=== PATIENT | female | born 1950 | race Caucasian/White ===

== ENCOUNTER 2019-03-19 11:51 | Emergency (ER) | payer OTHER ==
[2019-03-19] MEDS ORDERED: NA CHLORIDE 0.9% 0 ML ONE (12:21)
[2019-03-19] MEDS ORDERED: ASPIRIN 81 MG CHEWABLE TABLET ONE (12:21)
[2019-03-19] MEDS ORDERED: NITROGLYCERIN 0.4 MG/TAB SL ONE (12:21)
[2019-03-19 12:25] LABS: Absolute Lymphocytes (CBC) 1.2 K/uL (0.7-4.9); Basophils % 0.5 % (0-1.3); Hematocrit 41.4 % (36.0-45.0); Lymphocytes % 28.1 % (15.3-44.8); MPV 7.8 fL (7.6-11.3); RBC Red Blood Cell Count 4.78 M/uL (3.86-4.86)
[2019-03-19 12:26] LABS: Protime INR 0.95
[2019-03-19 12:41] LABS: ALT/SGPT 17 U/L (12-78); AST/SGOT 17 U/L (15-37); Albumin 3.8 g/dL (3.4-5.0); Alkaline Phosphatase 93 U/L (45-117); BUN Blood Urea Nitrogen 16 mg/dL (7-18); Bicarbonate 26 mmol/L (21-32); Bilirubin Direct 0.1 mg/dL (0-0.2); Bilirubin Total 0.4 mg/dL (0.2-1.0); Glucose Level 94 mg/dL (74-106); Magnesium 2.3 mg/dL (1.8-2.4); NT PRO-BNP 791 pg/mL (<125); Potassium 3.6 mmol/L (3.5-5.1); Protein, Total 7.6 g/dL (6.4-8.2); Sodium Level 146 mmol/L (136-145); Troponin (Emerg Dept Use Only) < 0.02 ng/mL (0.0-0.045)
[2019-03-19] MEDS ORDERED: LORazepam 2 MG/ML VIAL ONE (13:34)
--- NOTE | 2019-03-19 14:10 | RAD REPORT ---
EXAM DESCRIPTION: CT - Chest Angio - 03/19/2019 1:55 pm CLINICAL HISTORY: back pain;Chest pain COMPARISON: Chest films same day TECHNIQUE: Dynamically enhanced 3 mm thick images of the chest were obtained during administration o f approximately 150mL Isovue 370 IV contrast. Coronal and oblique MIP reconstruction images were gene rated and reviewed. Exam utilizes a protocol to evaluate the pulmonary arterial tree. All CT scans are performed using dose optimization technique as appropriate and may include automated exposure control or mA/KV adjustment according to patient size. FINDINGS: No pulmonary emboli are identified. Thoracic aorta is well visualized. No acute aortic finding. No pericardial thickening or effusion. No infiltrate or mass in the lung parenchyma. No pleural effusion or pleural thickening. No mediastinal or hilar suspicious masses. No chest wall masses or abnormal axillary lymphadenopathy. Limited upper abdomen imaging shows small hiatal hernia. IMPRESSION: No pulmonary emboli. No acute aortic finding. Lungs are clear. No acute CT chest finding seen.
--- NOTE | 2019-03-19 15:07 | RAD REPORT ---
EXAM DESCRIPTION: Aj Single View03/19/2019 12:28 pm CLINICAL HISTORY: Chest pain COMPARISON: 2017 FINDINGS: The lungs appear clear of acute infiltrate. The heart is normal size IMPRESSION: No acute abnormalities displayed
--- NOTE | 2019-03-19 15:07 | EDPHYS ---
Physician Documentation [facility] Name: Carisa Lubin Age: 69 yrs Sex: Female : 1950 Arrival Date: 03/19/2019 Time: 11:52 Bed 23 Private MD: Ashkan King ED Physician Colton Ennis HPI: 03/19 12:23 This 69 yrs old Female presents to ER via Ambulatory with complaints of Chest cp Pain. 12:23 The patient or guardian reports chest pain that is located primarily in the substernal cp area. 12:23 Onset: 3 day(s) ago. Associated signs and symptoms: Pertinent negatives: abdominal cp pain, cough, diaphoresis, dizziness, lower extremity pain, lower extremity swelling, shortness of breath, syncope. 12:23 The chest pain is described as aching. Duration: The patient or guardian reports cp multiple episodes, that wax and wane. Modifying factors: The symptoms are alleviated by NSAIDS, Ibuprofen. the symptoms are aggravated by nothing. 12:23 Associated signs and symptoms: Pertinent positives: pain upper back and neck area. cp Patient reports chest pain for past few days that usually is relieved after taking ibuprofen. Today pain has persisted so PCP wanted her to come to ED for evaluation. Patient reports she is active and pain does not seem to worsen with activity. Historical: - Allergies: 11:57 Codeine; aj1 - Home Meds: 11:57 irbesartan oral oral [Active]; unknown blood pressure medication [Active]; aj1 - PMHx: 11:57 Hypertension; Migraines; aj1 - Immunization history:: Flu vaccine is not up to date. - Social history:: Smoking status: Patient/guardian denies using tobacco. - Ebola Screening: : Patient denies travel to an Ebola-affected area in the 21 days before illness onset. ROS: 12:25 Constitutional: Negative for body aches, chills, fever, poor PO intake. cp 12:25 Eyes: Negative for injury, pain, redness, and discharge. cp 12:25 ENT: Negative for drainage from ear(s), ear pain, sore throat, difficulty swallowing, difficulty handling secretions. 12:25 Cardiovascular: Positive for chest pain, Negative for edema, palpitations. 12:25 Respiratory: Negative for cough, shortness of breath, wheezing. 12:25 Abdomen/GI: Negative for abdominal pain, nausea, vomiting, and diarrhea. 12:25 Back: Positive for pain at rest, of the upper back, Negative for injury or acute deformity. 12:25 : Negative for urinary symptoms. 12:25 Skin: Negative for cellulitis, rash. 12:25 Neuro: Negative for altered mental status, dizziness, syncope, weakness. 12:25 All other systems are negative. Exam: 12:05 ECG was reviewed by the Attending Physician. cp 12:33 Constitutional: The patient appears in no acute distress, alert, awake, comfortable, cp non-diaphoretic, non-toxic, well developed, well nourished. 12:33 Head/Face: Normocephalic, atraumatic. cp 12:33 Eyes: Periorbital structures: appear normal, Pupils: equal, round, and reactive to light and accomodation, Extraocular movements: intact throughout, Conjunctiva: normal, no exudate, no injection, Sclera: no appreciated abnormality, Lids and lashes: appear normal, bilaterally. 12:33 ENT: External ear(s): are unremarkable, Nose: is normal, Mouth: is normal, Posterior pharynx: is normal, airway is patent, no erythema, no exudate. 12:33 Neck: ROM/movement: is normal, is supple, without pain, no range of motions limitations, no nuchal rigidity. 12:33 Chest/axilla: Inspection: normal, Palpation: is normal, no crepitus, no tenderness. 12:33 Cardiovascular: Rate: normal, Rhythm: regular, Pulses: Pulses are 2+ in right radial artery and left radial artery. Edema: is not appreciated, JVD: is not appreciated. 12:33 Respiratory: the patient does not display signs of respiratory distress, Respirations: normal, no use of accessory muscles, no retractions, no splinting, no tachypnea, labored breathing, is not present, Breath sounds: are clear throughout, no decreased breath sounds, no stridor, no wheezing. 12:33 Abdomen/GI: Inspection: abdomen appears normal, Palpation: abdomen is soft and non-tender, in all quadrants. 12:33 Back: pain, that is mild, of the upper back, ROM is normal. 12:33 Skin: no rash present. 12:33 Neuro: Orientation: to person, place \T\ time. Mentation: is normal, Motor: moves all fours, strength is normal, Sensation: is normal. 14:53 ECG was reviewed by the Attending Physician. cp Vital Signs: 11:57 BP 199 / 89; Pulse 63; Resp 18; Temp 98.7; Pulse Ox 100% on R/A; Weight 76.2 kg (R); aj1 Height 5 ft. 7 in. (170.18 cm) (R); Pain 4/10; 12:17 BP 156 / 84; Pulse 60; Resp 18; Pulse Ox 99% on R/A; mg2 13:40 BP 151 / 68; Pulse 60; Resp 18; Pulse Ox 100% on R/A; mg2 15:01 BP 172 / 66; Pulse 53; Resp 19; Temp 98.7(O); Pulse Ox 100% ; lt1 11:57 Body Mass Index 26.31 (76.20 kg, 170.18 cm) aj1 MDM: 12:10 Patient medically screened. cp 12:35 Differential diagnosis: acute myocardial infarction, acute pericarditis, chest wall cp pain, pericarditis, pleurisy, pneumonia, pneumothorax, pulmonary embolus, stable angina, thoracic aortic disection, unstable angina. 13:56 HEART Score: History: Slightly Suspicious (0), ECG: Normal (0), Age: > or = 65 years cp (2), Risk Factors: 1 or 2 risk factors (1), [Hypertension] Troponin: < or = 1 x Normal Limit (0). The patient was given aspirin in the Emergency Department. 15:05 Data reviewed: vital signs, nurses notes, lab test result(s), EKG, radiologic studies, cp CT scan, plain films. 15:05 Test interpretation: by ED physician or midlevel provider: ECG, plain radiologic cp studies. Counseling: I had a detailed discussion with the patient and/or guardian regarding: the historical points, exam findings, and any diagnostic results supporting the discharge/admit diagnosis, lab results, radiology results, the need for outpatient follow up, a spoon maker, to return to the emergency department if symptoms worsen or persist or if there are any questions or concerns that arise at home. ED course: VSS. Initial and repeat EKGs and troponin negative. Patient reports she has appt with cardiology next week. Will discharge to home for continued monitoring. 03/19 12:03 Order name: Basic Metabolic Panel; Complete Time: 13:21 mg2 03/19 13:21 Interpretation: Normal except: NA 146; CL 112; GFR 46. 03/19 12:03 Order name: CBC with Diff; Complete Time: 13:21 mg2 03/19 13:55 Interpretation: Normal except: EOSINOPHIL % 14.6; EOSA 0.6. 03/19 12:03 Order name: LFT's; Complete Time: 13:21 [facility] [place] 03/[place] 12:03 Order name: Magnesium; Complete Time: 13:21 mg2 03/19 12:03 Order name: NT PRO-BNP; Complete Time: 13:21 mg2 03/19 12:03 Order name: PT-INR; Complete Time: 13:21 [facility] [place] 03/19 12:03 Order name: Troponin (emerg Dept Use Only); Complete Time: 13:21 mg2 03/19 12:03 Order name: XRAY Chest (1 view) [facility] [place] 03/19 12:26 Order name: CT Chest Angio 03/19 14:22 Order name: Troponin (emerg Dept Use Only): repeat; Complete Time: 15:05 [facility] [place] 03/19 15:05 Interpretation: Reviewed. 03/19 14:35 Order name: CT; Complete Time: 14:58 EDMS 03/19 12:03 Order name: EKG; Complete Time: 12:05 [facility] [place] 03/19 12:03 Order name: Cardiac monitoring; Complete Time: 12: [facility] [place] 03/19 12:03 Order name: EKG - Nurse/Tech; Complete Time: 12:03 [facility] [place] 03/19 12:03 Order name: IV Saline Lock; Complete Time: 12: [facility] [place] 03/19 12:03 Order name: Labs collected and sent; Complete Time: 12:15 [facility] [place] 03/19 12:03 Order name: O2 Per Protocol; Complete Time: 12:15 [facility] [place] 03/19 12:03 Order name: O2 Sat Monitoring; Complete Time: 12:15 [facility] [place] 03/19 14:22 Order name: EKG - Nurse/Tech: repeat; Complete Time: 14:52 mg2 EC:05 Rate is 68 beats/min. Rhythm is regular. WI interval is normal. QRS interval is normal. cp QT interval is normal. Interpreted by me. Reviewed by me. 14:53 Rate is 51 beats/min. Rhythm is regular. WI interval is normal. QRS interval is normal. cp QT interval is normal. Interpreted by me. Reviewed by me. Administered Medications: 12:29 Not Given (Patient Refused; patient is pain-free): Nitroglycerin 0.4 mg Sublingual once mg2 12:29 Not Given (Patient Refused): NS 0.9% 500 ml IV at bolus once mg2 12:30 Drug: Aspirin Chewable Tablet 243 mg {Note: patient took 81 mg aspirin at home, just mg2 given 3 81 mg in ed.} Route: PO; 13:36 Follow up: Response: No adverse reaction mg2 14:03 Not Given (Patient Refused): Ativan 0.5 mg IVP once mg2 Disposition: 15:43 Co-signature as Attending Physician, Colton Ennis MD I agree with the assessment and kdr plan of care. Disposition: 03/19/19 15:05 Discharged to Home. Impression: Chest pain, unspecified. - Condition is Stable. - Discharge Instructions: Nonspecific Chest Pain, Aspirin and Your Heart. - Prescriptions for Ibuprofen 800 mg Oral Tablet - take 1 tablet by ORAL route every 8 hours As needed take with food; 30 tablet. Tramadol 50 mg Oral Tablet - take 1 tablet by ORAL route every 8 hours as needed; 12 tablet. - Medication Reconciliation Form, Thank You Letter, Antibiotic Education, Prescription Opioid Use form. - Follow up: Lukas Armenta MD; When: 2 - 3 days; Reason: Recheck today's complaints. - Problem is new. - Symptoms have improved. Signatures: Dispatcher [employer] EDMS Cat Virgen RN RN aj1 Colton Ennis MD MD [facility] Joaquin Graves PA PA cp Tez Connors RN RN mg2 Corrections: (The following items were deleted from the chart) 13:55 13:55 Normal except: EOSINOPHIL % 14.6. cp cp 15:15 15:05 03/19/2019 15:05 Discharged to Home. Impression: Chest pain, unspecified. mg2 Condition is Stable. Forms are Medication Reconciliation Form, Thank You Letter, Antibiotic Education, Prescription Opioid Use. Follow up: Lukas Armenta; When: 2 - 3 days; Reason: Recheck today's complaints. Problem is new. Symptoms have improved. cp
--- NOTE | 2019-03-19 15:07 | ER ---
Nurse's Notes [facility] Name: Carisa Lubin Age: 69 yrs Sex: Female : 1950 Arrival Date: 03/19/2019 Time: 11:52 Bed 23 Private MD: Ashkan King Diagnosis: Chest pain, unspecified Presentation: 03/19 11:53 Presenting complaint: Patient states: "For the last few days my chest has been hurting aj1 but Ill take an ibuprofen and it'll stop, so I assumed I pulled a muscle, because I'm always cleaning. The pain seems to be hurting a little worse today and my doctor told me to come" Reports substernal chest pain that radiates to the back of her neck. Denies SOB, palpitations, dizziness. Transition of care: patient was not received from another setting of care. Onset of symptoms was March 14, 2019. Risk Assessment: Do you want to hurt yourself or someone else? Patient reports no desire to harm self or others. Initial Sepsis Screen: Does the patient meet any 2 criteria? No. Patient's initial sepsis screen is negative. Does the patient have a suspected source of infection? No. Patient's initial sepsis screen is negative. Care prior to arrival: None. 11:53 Method Of Arrival: Ambulatory aj1 11:53 Acuity: ISABELLA 3 aj1 Triage Assessment: 11:57 General: Appears comfortable, Behavior is calm, cooperative, appropriate for age. Pain: aj1 Complains of pain in mid-sternal area Pain radiates to neck Pain currently is 4 out of 10 on a pain scale. Is continuous. Neuro: Level of Consciousness is awake, alert, obeys commands, Oriented to person, place, time, situation. Cardiovascular: Patient's skin is warm and dry. Respiratory: Airway is patent Respiratory effort is even, unlabored, Respiratory pattern is regular, symmetrical. Historical: - Allergies: 11:57 Codeine; aj1 - Home Meds: 11:57 irbesartan oral oral [Active]; unknown blood pressure medication [Active]; aj1 - PMHx: 11:57 Hypertension; Migraines; aj1 - Immunization history:: Flu vaccine is not up to date. - Social history:: Smoking status: Patient/guardian denies using tobacco. - Ebola Screening: : Patient denies travel to an Ebola-affected area in the 21 days before illness onset. Screenin:16 Abuse screen: Denies threats or abuse. Denies injuries from another. Nutritional mg2 screening: No deficits noted. Tuberculosis screening: No symptoms or risk factors identified. Fall Risk IV access (20 points). Assessment: 12:16 General: Appears in no apparent distress. comfortable, Behavior is calm, cooperative. mg2 Pain: Complains of pain in chest Pain does not radiate. Pain currently is 3 out of 10 on a pain scale. Quality of pain is described as aching, Pain began gradually, 2-3 days ago. Is intermittent. Neuro: Level of Consciousness is awake, alert, obeys commands, Oriented to person, place, time, situation. Cardiovascular: Capillary refill < 3 seconds Patient's skin is warm and dry. Chest pain. Respiratory: Airway is patent Respiratory effort is even, unlabored, Respiratory pattern is regular, symmetrical. GI: No signs and/or symptoms were reported involving the gastrointestinal system. : No signs and/or symptoms were reported regarding the genitourinary system. EENT: No signs and/or symptoms were reported regarding the EENT system. Derm: Skin is intact, is healthy with good turgor, Skin is pink, warm \\T\\ dry. normal. Musculoskeletal: Circulation, motion, and sensation intact. Capillary refill < 3 seconds. 13:37 Reassessment: patient is claustrophobic to do the ct scan. she asked to wait for her mg2 daughter to come and accompany her inside the room. journeyman electrician confirmed that she can as long as she is not . Vital Signs: 11:57 BP 199 / 89; Pulse 63; Resp 18; Temp 98.7; Pulse Ox 100% on R/A; Weight 76.2 kg (R); aj1 Height 5 ft. 7 in. (170.18 cm) (R); Pain 4/10; 12:17 BP 156 / 84; Pulse 60; Resp 18; Pulse Ox 99% on R/A; mg2 13:40 BP 151 / 68; Pulse 60; Resp 18; Pulse Ox 100% on R/A; mg2 15:01 BP 172 / 66; Pulse 53; Resp 19; Temp 98.7(O); Pulse Ox 100% ; lt1 11:57 Body Mass Index 26.31 (76.20 kg, 170.18 cm) aj1 ED Course: 11:52 Patient arrived in ED. as 11:53 Ashkan King MD is Private Physician. as 11:55 Triage completed. aj1 11:57 Arm band placed on Patient placed in an exam room. EKG completed in triage. Results aj1 shown to MD. 11:59 EKG done, by windshield repair technician. reviewed by Colton Ennis MD. at1 12:03 Tez Connors, CHEYANNE is Primary Nurse. mg2 12:05 Joaquin Graves PA is PHCP. cp 12:05 Colton Ennis MD is Attending Physician. cp 12:17 No provider procedures requiring assistance completed. Inserted saline lock: 20 gauge mg2 in right forearm, using aseptic technique. Blood collected. Patient maintains SpO2 saturation greater than 95% on room air. 12:18 Patient has correct armband on for positive identification. campus monitor on. Pulse mg2 ox on. NIBP on. 12:31 XRAY Chest (1 view) In Process Unspecified. EDMS 14:33 Troponin (emerg Dept Use Only): repeat Sent. lt1 15:05 Lukas Armenta MD is Referral Physician. cp 15:15 IV discontinued, intact, bleeding controlled, No redness/swelling at site. Pressure mg2 dressing applied. Administered Medications: 12:29 Not Given (Patient Refused; patient is pain-free): Nitroglycerin 0.4 mg Sublingual once mg2 12:29 Not Given (Patient Refused): NS 0.9% 500 ml IV at bolus once mg2 12:30 Drug: Aspirin Chewable Tablet 243 mg {Note: patient took 81 mg aspirin at home, just mg2 given 3 81 mg in ed.} Route: PO; 13:36 Follow up: Response: No adverse reaction mg2 14:03 Not Given (Patient Refused): Ativan 0.5 mg IVP once mg2 Outcome: 15:05 Discharge ordered by MD. cp 15:15 Discharged to home ambulatory, with family. mg2 15:15 Condition: stable 15:15 Discharge instructions given to patient, family, Instructed on discharge instructions, follow up and referral plans. medication usage, Demonstrated understanding of instructions, follow-up care, medications, Prescriptions given X 2. 15:15 Patient left the ED. mg2 Signatures: Dispatcher [employer] EDMS Cat Virgen RN RN aj1 Emilia Pino Amanda, organ teacher EKG Tat1 Joaquin Graves PA PA cp Tez Connors, RN RN mg2 Rochelle Garibay 1
[2019-03-19 15:25] VITALS: TEMP 98.7
[2019-03-19 15:27] VITALS: O2SAT 100
[2019-03-19 15:29] VITALS: BP 172/66
--- NOTE | 2019-03-20 14:16 | EKG ---
Test Date: 2019-03-19 Test Time: 14:51:20 Manager Intensive Care: TYRELL/S MEASUREMENT RESULTS: Intervals: Rate: 51 [place]: 178 QRSD: 78 QT: 464 QTc: 427 [place]: P: 74 [place]: 178 QRS: 11 T: 74 INTERPRETIVE STATEMENTS: Sinus bradycardia Otherwise normal ECG Compared to ECG 03/19/2019 11:58:57 Sinus rhythm no longer present Electronically Signed On 03-20-19 14:13:41 CDT by Lon Marte
--- NOTE | 2019-03-20 14:18 | EKG ---
Test Date: 2019-03-19 Test Time: 11:58:57 Furnace Worker: TYRELL MEASUREMENT RESULTS: Intervals: Rate: 68 NH: 172 QRSD: 80 QT: 428 QTc: 455 Show [place]: P: 62 NH: 172 QRS: 6 T: 64 INTERPRETIVE STATEMENTS: Normal sinus rhythm Normal ECG Compared to ECG 07/02/2016 05:14:19 No significant changes Electronically Signed On 03-20-19 14:13:50 CDT by Lon Marte
== END 2019-03-19 15:15 | disposition home or self-care (01) ==
LOC: ER 11:51
DX: R07.9 Chest pain, unspecified (principal); I10 Essential (primary) hypertension; Z88.5 Allergy status to narcotic agent
CPT/HCPCS: 93005 ×2; 85025; 80048; 36415; 83735; 85610; 80076; 84484 ×2; 83880; 71275; 71045; 99285; Q9967